=== PATIENT | female | born 1975 | race Caucasian/White ===

== ENCOUNTER 2020-12-07 07:30 | Day surgery (SDC) | payer BC ==
[~2020-12-07] VITALS: Ht 160 cm; Wt 101.2 kg
[~2020-12-07 07:30] MED LIST: ALLERGY RELIEF PO; CYAN500 PO; DHA PO; DHEA PO; ERGO50000 PO; FISH OIL PO; GLIP10 PO; IRON PO; OMEP20ER PO; PROGESTERONE PO
[2020-12-07] MEDS ORDERED: PANT20 PO (08:00)
[2020-12-07] MEDS ORDERED: GABA300 PO (08:01)
[2020-12-07] MEDS ORDERED: INSULANI (08:02)
[2020-12-07] MEDS ORDERED: NOVOLIN N100 UNIT/2 SQ (08:03)
[2020-12-07] MEDS ORDERED: CARV6.25 PO (08:04)
--- NOTE | 2020-12-07 09:34 | NUR ---
12/07/20 0934 Camryn Torre History, Chart, Medications and Allergies reviewed before start of procedure. Patient confirms NPO status and agrees with scheduled surgery. 3-LEAD EKG REVIEWED WITH PHYSICIAN PRIOR TO START OF PROCEDURE. MONITOR INTACT WITH CONTINUOUS PULSE OXIMETRY AND INTERMITTENT BP. PATIENT DETERMINED TO BE ASA APPROPRIATE FOR PROPOFOL SEDATION PRIOR TO START OF PROCEDURE BY DR. TORRE.
--- NOTE | 2020-12-07 10:11 | NUR ---
Ambulatory in Day SurgeryPatient states colon prep results clear. History, Chart, Medications and Allergies reviewed before start of procedure.Lungs clear T/O to Auscultation. Patient confirms NPO status and agrees with scheduled surgery. Pre-Op teaching done. Pt verbalizes understanding. Patient States Post-Procedure ride home has been arranged.
--- NOTE | 2020-12-07 11:04 | NUR ---
Discharge instructions reviewed with patient. Patient verbalizes understanding. Copy given to patient to take home.
--- NOTE | 2020-12-07 11:28 | NUR ---
Discharged via wheelchair to private car for ride home.
== END 2020-12-07 11:20 | disposition home or self-care (01) ==
LOC: ORSCMMR 07:30 → ORD 09:00 → ORSCMMR 11:20
PROVIDERS: Internal Medicine Gastroenterology
PROC: 0DB78ZX Excision of Stomach, Pylorus, Via Natural or Artificial Opening Endoscopic, Diagnostic (ICD-10-PCS; principal; 2020-12-07 09:00)
PROC: 0DBL8ZX Excision of Transverse Colon, Via Natural or Artificial Opening Endoscopic, Diagnostic (ICD-10-PCS; principal; 2020-12-07 09:00)
PROC: 0DB98ZX Excision of Duodenum, Via Natural or Artificial Opening Endoscopic, Diagnostic (ICD-10-PCS; principal; 2020-12-07 09:00)
PROC: 0DBM8ZX Excision of Descending Colon, Via Natural or Artificial Opening Endoscopic, Diagnostic (ICD-10-PCS; principal; 2020-12-07 09:00)
PROC: 0DBN8ZX Excision of Sigmoid Colon, Via Natural or Artificial Opening Endoscopic, Diagnostic (ICD-10-PCS; principal; 2020-12-07 09:00)
PROC: 0DBK8ZX Excision of Ascending Colon, Via Natural or Artificial Opening Endoscopic, Diagnostic (ICD-10-PCS; principal; 2020-12-07 09:00)
PROC: 0DBP8ZX Excision of Rectum, Via Natural or Artificial Opening Endoscopic, Diagnostic (ICD-10-PCS; principal; 2020-12-07 09:00)
DX: D50.9 Iron deficiency anemia, unspecified (principal); K21.00 Gastro-esophageal reflux disease with esophagitis, without bleeding; D12.2 Benign neoplasm of ascending colon; D12.3 Benign neoplasm of transverse colon; D12.4 Benign neoplasm of descending colon; D12.5 Benign neoplasm of sigmoid colon; K62.1 Rectal polyp; K31.7 Polyp of stomach and duodenum; K29.70 Gastritis, unspecified, without bleeding; K76.0 Fatty (change of) liver, not elsewhere classified; E11.9 Type 2 diabetes mellitus without complications; Z79.4 Long term (current) use of insulin; E78.5 Hyperlipidemia, unspecified; Z79.899 Other long term (current) drug therapy
CPT/HCPCS: 82947; 88305; 88342; J2704; J7120

== ENCOUNTER 2021-02-16 11:02 | Day surgery (SDC) | payer BC ==
[~2021-02-16] VITALS: Ht 160 cm; Wt 105.0 kg
[~2021-02-16 11:02] MED LIST changes: +CARV6.25 PO; +GABA300 PO; +INSULANI SC; +NOVOLIN N100 UNIT/2 SQ; +PANT20 PO
[2021-02-16] MEDS ORDERED: HUMALOG KW100 UNIT/1 SC (11:31)
[2021-02-16] MEDS ORDERED: FLUT.05NI (11:31)
[2021-02-16] MEDS ORDERED: FLUC150A PO (11:32)
[2021-02-16] MEDS ORDERED: FUROSEMIDE20 MG PO (11:32)
[2021-02-16] MEDS ORDERED: KLOR-CON 1010 ME5 PO (11:33)
[2021-02-16] MEDS ORDERED: MECL25 PO (11:33)
[2021-02-16] MEDS ORDERED: NYSTOP15 GM TOP (11:34)
--- NOTE | 2021-02-16 14:10 | NUR ---
02/16/21 1410 Kwan Arrington FLUID DEFICIT 200 NOTED ON MYOSURE. MD NOTIFIED, NO ORDERS RECEIVED.
== END 2021-02-16 15:20 | disposition home or self-care (01) ==
LOC: ORSCSDS 11:02
PROVIDERS: Obstetrics & Gynecology
PROC: 0UDB8ZX Extraction of Endometrium, Via Natural or Artificial Opening Endoscopic, Diagnostic (ICD-10-PCS; principal; 2021-02-16 12:30)
PROC: 0U5B8ZZ Destruction of Endometrium, Via Natural or Artificial Opening Endoscopic (ICD-10-PCS; principal; 2021-02-16 12:30)
DX: N92.0 Excessive and frequent menstruation with regular cycle (principal); I10 Essential (primary) hypertension; E11.40 Type 2 diabetes mellitus with diabetic neuropathy, unspecified; K21.9 Gastro-esophageal reflux disease without esophagitis; Z79.4 Long term (current) use of insulin; E66.01 Morbid (severe) obesity due to excess calories; Z68.41 Body mass index [BMI] 40.0-44.9, adult; Z79.899 Other long term (current) drug therapy; K76.0 Fatty (change of) liver, not elsewhere classified; G47.33 Obstructive sleep apnea (adult) (pediatric)
CPT/HCPCS: 82947; 88305; J0690; J1100; J2250; J2405; J2704; J3010; J7120